=== PATIENT | male | born 1940 | race Caucasian/White ===

== ENCOUNTER 2018-08-21 11:43 | Inpatient (IN) ==
[2018-08-21] MEDS ORDERED: DUONEB (A & A) INH PRN (15:14)
[2018-08-21 15:49] LABS: BASO# 0.04 X1000 (0.0-0.2); BASO% 0.5 % (0.0-0.8); EOS# 0.09 X1000 (0.0-0.7); EOS% 1.1 % (0.0-10.0); HEMATOCRIT 26.6 % (42.0-52.0); HEMOGLOBIN 8.9 g/dL (14.0-18.0); LYMPH# 1.72 X1000 (1.2-3.4); LYMPH% 20.7 % (20.5-51.1); MCH 29.5 PG (27-31); MCHC 33.5 g/dL (33-37); MCV 88.1 FL (81-99); MONO# 0.66 X1000 (0.11-0.59); MPV 9.3 FL (7.4-10.4); NEUT# 5.79 X1000 (1.4-6.5); NEUT% 69.7 % (42.2-75.2); PLT 334 X1000 (130-400); RBC 3.02 XMIL (4.7-6.1)
[2018-08-21 16:13] LABS: AGAP 9; BUN 4 mg/dL (8-22); CALCIUM 8.5 mg/dL (8.8-10.2); CHLORIDE 104 mmol/L (98-107); COSMO 273; CREATININE 0.8 mg/dL (0.7-1.2); ESTIMATED GFR > 60; GLUCOSE 99 mg/dL (70-104); SODIUM 138 mmol/L (136-145); TCO2 25 mmol/L (25-35)
[2018-08-21 16:28] LABS: INR 0.95; PROTIME 13.4 Seconds (11.0-16.0)
[2018-08-21] MEDS: NS 1,000 ML IV SCH (18:23)
[2018-08-21] MEDS: NEURONTIN PO SCH (21:30)
[2018-08-21] MEDS: PRAVACHOL PO SCH (21:30)
[2018-08-21] MEDS: ZANTAC PO SCH (21:30)
[2018-08-21] MEDS: IMDUR PO SCH (21:30)
[2018-08-21] MEDS: FERROUS SULFATE PO SCH (21:30)
--- NOTE | 2018-08-21 22:11 | HISTORY AND PHYSICAL ---
CHIEF COMPLAINT: The patient is having bleeding per rectum 6 days in a row, quite a bit of bleeding. HISTORY OF PRESENT ILLNESS: He is a 77-year-old, white gentleman, who came to my office with above symptoms. He had a similar presentation last year. He is also scheduled for a CT of the chest and abdomen for follow-up on lymphoma. He looks pale, heme-positive stools and hemodynamics stable. He had a diverticular bleed. He was on Plavix. Patient is advised to stop Plavix. Admitted to the hospital. Hematocrit was 26 with ongoing bleeding and underlying CAD and PAD. The patient needs to be hospitalized. One unit of packed RBC was ordered. As a result, a hospital admission was warranted. PAST MEDICAL HISTORY: 1. Abdominal aortic aneurysm, 3.0 cm. 2. 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 3. COPD. 4. Diverticulosis. 5. Coronary artery disease, with stent in the LAD and RCA. 6. Status post bypass surgery. 7. Type 2 diabetes. 8. Hemorrhoids. 9. Low-grade follicular lymphoma stable. 10. Pectus excavatum. 11. Peripheral vascular disease bilateral femoral bruit and right carotid bruits. 12. Tobacco abuse. PAST SURGICAL HISTORY: Two stents in the heart. Bypass surgery. Two sinus surgeries, hemorrhoidectomy, vasectomy, right hand surgery, incisional hernia repair, right atherectomy, balloon angioplasty followed by stent placement. MEDICATIONS: Pletal p.o. b.i.d., clonidine 0.1 daily, Plavix 75 daily, Combivent as needed, gabapentin 100 p.o. b.i.d., Isosorbide 60 p.o. b.i.d., pravastatin 40 daily, ranitidine 150 daily, Tiazac 240 once daily, losartan 160 daily. ALLERGIES: Lorcet and Percocet. SOCIAL HISTORY: , retired from work. Currently smoking. No alcohol. No drug abuse. FAMILY HISTORY: Father of [place]. Mom of dementia at 92. Brother had colon cancer. REVIEW OF SYSTEMS: HEENT: No headache. No vision problem. No earache. No sore throat. Neck: No goiter. No lymphadenopathy. No bruit. Cardiopulmonary: No chest pain, shortness of breath, PND, orthopnea. GI: No nausea, vomiting, abdominal pain. Bleeding per rectum. EXTREMITIES: No swelling of legs. No joint pain. Neurologic: No focal symptoms or weakness. EXAMINATION: Vital Signs: Temperature is 97.9, pulse 68, blood pressure is stable. HEENT Exam: Pale. Pupils equal, react to light. Tongue is in midline. Neck: Supple. No lymphadenopathy. No goiter. Chest: Bilateral air entry. Heart: Sounds are regular, but tachycardic. No murmur. Abdomen: Belly is soft, nontender. No signs of peritonitis. Rectal: Heme-positive stools. Extremities: No peripheral edema, cyanosis. Neurologic: No obvious neurological deficits. INVESTIGATIONS: CBC: White cell count 8.3, hematocrit 26.6, platelets 334. PT 13.4, INR 0.95. SMA-7 is normal. ASSESSMENT AND PLAN: A 77-year-old, white male, admitted to the hospital with: 1. Lower gastrointestinal bleeding, very symptomatic, hematocrit 26, and heme- positive stools. Plan is hold the Plavix IV. He had a orthostatic blood pressure, IV fluids and transfuse 1 unit of packed RBC. 2. Follicular lymphoma. Reschedule CT thorax and abdomen in the morning. 3. Continue on Zantac. 4. Hyperlipidemia on Pravachol. 5. Chronic pain on Neurontin. 6. Coronary artery disease. Will hold the Plavix. Continue on isosorbide. Since his ongoing bleeding, we will hold the blood pressure medications and will repeat the blood workup in the morning. cc: Anselmo Mattson MD MTDD
[2018-08-21] MEDS ORDERED: NS 250 ML ONE (23:14)
[2018-08-22] MEDS: NS 1,000 ML IV SCH ×2 (03:14→09:35)
[2018-08-22 07:40] LABS: BASO# 0.06 X1000 (0.0-0.2); BASO% 1.1 % (0.0-0.8); EOS# 0.19 X1000 (0.0-0.7); EOS% 3.4 % (0.0-10.0); HEMATOCRIT 27.8 % (42.0-52.0); HEMOGLOBIN 9.1 g/dL (14.0-18.0); LYMPH# 1.83 X1000 (1.2-3.4); LYMPH% 32.5 % (20.5-51.1); MCH 29.5 PG (27-31); MCHC 32.7 g/dL (33-37); MCV 90.3 FL (81-99); MONO# 0.77 X1000 (0.11-0.59); MONO% 13.7 % (1.7-9.3); MPV 9.5 FL (7.4-10.4); NEUT# 2.78 X1000 (1.4-6.5); NEUT% 49.3 % (42.2-75.2); PLT 295 X1000 (130-400); RBC 3.08 XMIL (4.7-6.1); WBC 5.63 X1000 (4.8-10.8)
[2018-08-22 07:56] LABS: AGAP 4; BUN 6 mg/dL (8-22); CALCIUM 8.2 mg/dL (8.8-10.2); CHLORIDE 106 mmol/L (98-107); COSMO 274; CREATININE 0.8 mg/dL (0.7-1.2); ESTIMATED GFR > 60; GLUCOSE 109 mg/dL (70-104); POTASSIUM 4.1 mmol/L (3.5-5.1); SODIUM 138 mmol/L (136-145); TCO2 28 mmol/L (25-35)
--- NOTE | 2018-08-22 09:37 | Diag Imaging Result Doc PS360 ---
EXAM: CT THORAX/ABD/PELVIS W/CON INDICATION: Abdominal pain TECHNIQUE: This exam was performed using automated exposure control, adjustment of mA or kV according to patient size, and/or use of iterative reconstruction technique. COMPARISON: CT chest abdomen and pelvis dated 08/16/2017 FINDINGS: CHEST: There is mild pulmonary emphysema with an apical predominance. There is a 9 mm slightly nodular focus in the right upper lobe abutting the major fissure. This actually have the appearance of a small focus of nonspecific pneumonitis or scarring. It is seen on image 59 of series 4. It was not present on the previous study. If warranted, consider follow-up based on Fleischner Society criteria. There is both mild linear scarring and subsegmental atelectasis at both lung bases. There is no pleural fluid collection and no pneumothorax. There are a few calcified mediastinal and right hilar lymph nodes indicating prior granulomatous disease. No other mediastinal lymphadenopathy is appreciated. There is no evidence of axillary lymphadenopathy. There is no cardiomegaly. There is aortic and coronary artery atherosclerotic disease that is stable. ABDOMEN/PELVIS: There is suggestion of minimal hepatic steatosis. The gallbladder, spleen, pancreas, and adrenal glands are essentially unremarkable. The kidneys and urinary bladder are essentially unremarkable. The appendix is normal. There is mild uncomplicated diverticulosis coli. The GI tract is essentially unremarkable, otherwise. There is stable mild aneurysmal dilation of the infrarenal abdominal aorta at two segments, both measuring up to 3.3 cm in diameter, stable. No new abdominal or pelvic lymphadenopathy is appreciated. Shotty borderline prominent inguinal lymph nodes are unchanged. IMPRESSION: 1.Small slightly nodular focus involving the right upper lobe noted on the previous study as detailed above but probably represents focal nonspecific pneumonitis or scarring. Please see above discussion. 2.Otherwise, the chest, abdomen, and pelvis are essentially stable. Electronically signed by Oswaldo Hardy 08/22/2018 9:35 AM
[2018-08-22] MEDS: IMDUR PO SCH ×2 (09:39→21:02)
[2018-08-22] MEDS: FERROUS SULFATE PO SCH ×2 (09:39→21:02)
[2018-08-22] MEDS: NEURONTIN PO SCH ×2 (09:39→21:03)
--- NOTE | 2018-08-22 17:32 | PROGRESS NOTE ---
DATE: 08/22/2018 SUBJECTIVE: The patient did receive a unit of blood. No obvious bleeding noted. Hemodynamics were stable. No abdominal pain. EXAM: Temperature is 98 degrees, pulse is 67, blood pressure is 144/60.HEENT: Slightly pale. Neck: Supple. Chest: Clear. Heart: Sounds are regular. Belly: Is soft, nontender. Good bowel sounds. INVESTIGATIONS: CBC. White cell count 5.6, hematocrit 27.8, platelets 295,000. SMA 7, sodium 138, potassium 4.1, chloride 106, BUN 6, creatinine 0.8. ASSESSMENT AND PLAN: 1. Lower gastrointestinal bleed due to diverticular bleeding. Previous EGD colon unremarkable. Continue hold on Lasix. 2. Hematocrit is still 27. Transfuse 1 unit of packed RBCs. 3. Advance the diet full liquid. 4. Follicular lymphoma. Will do the CT of the chest and the abdomen and pelvis. 5. Continue IV fluids and will repeat the blood workup in the morning. LEVEL OF DOCUMENTATION: 25 minutes. cc: Anselmo Mattson MD
[2018-08-22] MEDS: PRAVACHOL PO SCH (21:02)
[2018-08-22] MEDS: ZANTAC PO SCH (21:02)
[2018-08-22] MEDS: AMBIEN PO PRN (22:17)
[2018-08-23] MEDS: NS 1,000 ML IV SCH ×3 (00:41→16:17)
[2018-08-23 08:12] LABS: BASO# 0.03 X1000 (0.0-0.2); BASO% 0.4 % (0.0-0.8); EOS# 0.14 X1000 (0.0-0.7); HEMOGLOBIN 10.7 g/dL (14.0-18.0); LYMPH# 1.55 X1000 (1.2-3.4); LYMPH% 22.7 % (20.5-51.1); MCH 29.9 PG (27-31); MCHC 33.4 g/dL (33-37); MCV 89.4 FL (81-99); MONO# 0.74 X1000 (0.11-0.59); MONO% 10.8 % (1.7-9.3); MPV 9.4 FL (7.4-10.4); NEUT# 4.37 X1000 (1.4-6.5); NEUT% 64.1 % (42.2-75.2); PLT 298 X1000 (130-400); RBC 3.58 XMIL (4.7-6.1); WBC 6.83 X1000 (4.8-10.8)
[2018-08-23] MEDS: NEURONTIN PO SCH ×2 (08:18→21:14)
[2018-08-23] MEDS: FERROUS SULFATE PO SCH ×2 (08:18→21:14)
[2018-08-23] MEDS: IMDUR PO SCH ×2 (08:18→21:13)
[2018-08-23 08:27] LABS: AGAP 8; BUN 4 mg/dL (8-22); CALCIUM 8.3 mg/dL (8.8-10.2); CHLORIDE 108 mmol/L (98-107); COSMO 279; CREATININE 0.7 mg/dL (0.7-1.2); ESTIMATED GFR > 60; GLUCOSE 88 mg/dL (70-104); POTASSIUM 3.8 mmol/L (3.5-5.1); SODIUM 142 mmol/L (136-145); TCO2 26 mmol/L (25-35)
--- NOTE | 2018-08-23 12:48 | PROGRESS NOTE ---
DATE: 08/23/2018 SUBJECTIVE: The patient is still bleeding. Transfused 2 units of packed RBC. Had CT of the chest and the abdomen and pelvis. Small nodular focus involving the right upper lobe, nonspecific scarring, stable findings. PHYSICAL EXAMINATION: Vital signs: Temperature is 98 degrees, vitals are stable. General: Slightly pale. Chest: Clear. Heart: Sounds are regular. Abdomen: Belly is soft, nontender. Neurologic: No obvious deficits noted. LABORATORY DATA: CBC: White cell count 6.3, hematocrit 32, platelets 298,000. SMA-7 is normal. ASSESSMENT AND PLAN: 1. Lower gastrointestinal bleed due to diverticular bleeding, stable, status post 2 units of packed red blood cells. Previous workup is negative. I spoke to Dr. Crawford. Continue to hold the Plavix and watch the symptoms and signs of gastrointestinal bleeding. 2. Advance the gastrointestinal soft diet and slowly reconcile home medications. We will watch over the weekend. LEVEL OF DOCUMENTATION: 25 minutes. cc: Anselmo Mattson MD
[2018-08-23] MEDS ORDERED: DIOVAN PO ONE (20:30)
[2018-08-23] MEDS: ZANTAC PO SCH (21:13)
[2018-08-23] MEDS: PRAVACHOL PO SCH (21:13)
[2018-08-23] MEDS: AMBIEN PO PRN (21:17)
[2018-08-24] MEDS: NEURONTIN PO SCH ×2 (08:19→20:36)
[2018-08-24] MEDS: NS 1,000 ML IV SCH ×3 (08:19→19:53)
[2018-08-24] MEDS: IMDUR PO SCH ×2 (08:19→20:36)
[2018-08-24] MEDS: DIOVAN PO SCH (08:19)
[2018-08-24] MEDS: FERROUS SULFATE PO SCH ×2 (08:19→20:37)
[2018-08-24 13:16] LABS: BASO# 0.03 X1000 (0.0-0.2); BASO% 0.4 % (0.0-0.8); EOS# 0.21 X1000 (0.0-0.7); HEMATOCRIT 31.7 % (42.0-52.0); HEMOGLOBIN 10.5 g/dL (14.0-18.0); LYMPH# 1.54 X1000 (1.2-3.4); LYMPH% 22.3 % (20.5-51.1); MCH 29.7 PG (27-31); MCHC 33.1 g/dL (33-37); MCV 89.5 FL (81-99); MONO# 0.59 X1000 (0.11-0.59); MONO% 8.6 % (1.7-9.3); MPV 9.2 FL (7.4-10.4); NEUT# 4.53 X1000 (1.4-6.5); NEUT% 65.7 % (42.2-75.2); PLT 315 X1000 (130-400); RBC 3.54 XMIL (4.7-6.1); RDW 15.7 % (11.5-14.5)
--- NOTE | 2018-08-24 13:38 | PROGRESS NOTE ---
DATE: 08/24/2018 SUBJECTIVE: The patient is doing better. No signs of obvious bleeding. Blood pressure is running high. EXAMINATION: Is 97 degrees, pulse 72, blood pressure is 143/57.HEENT: Within normal limits. Neck: Supple no lymphadenopathy. Chest: Clear to auscultation. Heart: Sounds are regular. Abdomen: Belly is soft, nontender. Good bowel sounds. Neurological: No neurological deficits. INVESTIGATIONS: CBC is pending. ASSESSMENT AND PLAN: 1. Lower GI bleeding most likely diverticular bleeding, off Plavix, restarted on blood pressure medicine. 2. We will check the CBC today and tomorrow. If it is stable will discharge and follow up on lymphoma. 3. CT chest and abdomen findings are stable and no signs of active bleeding at this time. We will monitor for next 24 hours. LEVEL OF DOCUMENTATION: 25 minutes. cc: Anselmo Mattson MD
[2018-08-24] MEDS: PRAVACHOL PO SCH (20:36)
[2018-08-24] MEDS: ZANTAC PO SCH (20:37)
[2018-08-24] MEDS: AMBIEN PO PRN (21:56)
[2018-08-25] MEDS: NS 1,000 ML IV SCH (06:27)
[2018-08-25 07:12] VITALS: BP 169/108
[2018-08-25 08:03] LABS: BASO# 0.06 X1000 (0.0-0.2); BASO% 0.8 % (0.0-0.8); EOS# 0.24 X1000 (0.0-0.7); EOS% 3.3 % (0.0-10.0); HEMATOCRIT 31.6 % (42.0-52.0); HEMOGLOBIN 10.5 g/dL (14.0-18.0); LYMPH# 1.73 X1000 (1.2-3.4); LYMPH% 23.9 % (20.5-51.1); MCH 29.6 PG (27-31); MCHC 33.2 g/dL (33-37); MONO# 0.72 X1000 (0.11-0.59); MONO% 9.9 % (1.7-9.3); MPV 9.4 FL (7.4-10.4); NEUT# 4.49 X1000 (1.4-6.5); NEUT% 62.1 % (42.2-75.2); PLT 302 X1000 (130-400); RBC 3.55 XMIL (4.7-6.1); RDW 15.6 % (11.5-14.5); WBC 7.24 X1000 (4.8-10.8)
[2018-08-25] MEDS ORDERED: PREVNAR 13 IM ONE (08:22)
[2018-08-25] MEDS: NEURONTIN PO SCH (09:02)
[2018-08-25] MEDS: FERROUS SULFATE PO SCH (09:02)
[2018-08-25] MEDS: IMDUR PO SCH (09:02)
[2018-08-25] MEDS: DIOVAN PO SCH (09:02)
--- NOTE | 2018-08-25 20:19 | DISCHARGE SUMMARY ---
ADMISSION DATE: 08/21/2018 DISCHARGE DATE: 08/25/2018 DISCHARGING DIAGNOSIS: Lower gastrointestinal bleed, hematochezia due to diverticular bleeding. SECONDARY DIAGNOSIS: 1. Abdominal aortic aneurysm, 3.0 cm. 2. High-grade intraepithelial neoplasia, stable. 3. Chronic obstructive pulmonary disease. 4. Diverticulosis. 5. Coronary artery disease with a stent in the left anterior descending and right coronary artery, stable, status post bypass surgery. 6. Type 2 diabetes. 7. Hemorrhoids. 8. Low-grade follicular lymphoma, stable under the care of Dr. Stewart. 9. Peripheral vascular disease. 10. Tobacco abuse. PROCEDURES: Transfusion of 2 units of packed red blood cells. BRIEF HISTORY: Please see the H and P that was done on 08/21/2018. In brief, he is a 76-year-old white gentleman basically admitted to the hospital with bleeding per rectum for the last 6 days. He presented with a similar presentation last year. During that time, Dr. Crawford performed EGD and colonoscopy. Findings were basically diverticulosis, diverticular bleeding. Hematocrit 26. Patient was given 2 units of packed RBCs. The patient was on Plavix, which was discontinued. There were no signs of active GI bleeding noted. The patient was advised to continue to hold Plavix for 10 days. The patient is also scheduled for CT of the chest and the abdomen for followup on low-grade lymphoma, follicular type, by Dr. Stewart. Findings were reassuring. Rest of the hospital course was uneventful. LABS: CBC: White cell count 7.2, hematocrit 31.6, platelets 302,000. SMA-7: Sodium 142, potassium 3.8, chloride 108, BUN 4, creatinine 0.7. CT of the chest and the abdomen: Small slight nodular focus in the right upper lobe which is stable. No significant lymphadenopathy. Diverticulosis. Infrarenal abdominal aneurysm 3.3 cm. Borderline inguinal lymph nodes, unchanged. DISCHARGE INSTRUCTIONS FOLLOWS: 1. Initiate vaccination protocol prior to the discharge. 2. Continue to hold on Plavix. 3. Zantac 150 daily. 4. Pravachol 40 daily. 5. Isosorbide 60 mg p.o. b.i.d. 6. Diovan 160 daily. 7. Gabapentin 200 p.o. b.i.d. 8. Combivent 1 puff every 6 hours. 9. Diltiazem 240 daily. 10. Centrum Silver 1 tablet daily. 11. Nitroglycerin as needed. 12. Icar-C Plus 1 tablet daily. 13. Hold the Plavix. 14. Recheck the blood counts in my office. cc: MD Randy Joseph MD Babu Kantamneni, MD
== END 2018-08-25 09:30 | disposition home or self-care (01) | DRG 811 ==
LOC: DIRADM 11:43 → 3N 13:33
PROVIDERS: ADMIT Internal Medicine; ATTEND Internal Medicine
CPT/HCPCS: 36430; 71260; 74177; 80048; 85025; 85610; 86850; 86900; 86901; 86920; 94761; A9270; J7030; J7050; P9016; Q9967